=== PATIENT | female | born 1955 | race Caucasian/White ===

== ENCOUNTER 2018-08-27 11:32 | Inpatient (IN) | payer OTHER ==
[~2018-08-27] VITALS: Ht 160 cm; Wt 72.1 kg
--- NOTE | 2018-08-27 04:32 | NUR ---
Lying in bed Hob up Tele ST 100's on Non rebreather mask 15L S/L to right AC intact and patent. S/l to Left Ac intact and patent . side rails up call light within reach. Addendum: 08/28/18 at 0621 by Chang Malcolm RN Time 2030 hrs
[2018-08-27 12:00] VITALS: BP 115/54
--- NOTE | 2018-08-27 12:00 | NUR ---
RN NOTES RECEIVED PATIENT FROM [facility] WITH BREATHING NORMAL, EVEN AND UNLABORED. NO SOB NOTED. NO ACUTE DISTRESS NOTED. TELE MONITOR REVEALS SR, HR=94. IV RAC IS PATENT AND INTACT, NO INFILTRATION NOTED. BOWEL SOUND PRESENT. PULSES PRESENT. KEPT CLEAN, DRY AND COMFORTABLE. ALL NEEDS ATTENDED. SAFETY MEASURE OBSERVED. CALL LIGHT WITH IN REACH. WILL CONT TO MONITOR.
[2018-08-27] MEDS ORDERED: IV NS 0.9% 1,000 ML IV PRN (13:55)
[2018-08-27] MEDS ORDERED: MAG HYDROX/AL HYDROX/SIMETH 30 ML UDC PO PRN (14:00)
[2018-08-27] MEDS ORDERED: Z GUARD REMEDY 2 OZ OINT TP PRN (14:00)
[2018-08-27] MEDS ORDERED: ACETAMINOPHEN 325 MG TABLET PO PRN (14:00)
[2018-08-27] MEDS ORDERED: ALBUTEROL FS 2.5 MG/3 ML VIAL.NEB CONTNEB ONE (14:00)
[2018-08-27] MEDS ORDERED: methylPREDNISolone SOD SUCC 125 MG/2ML VIAL IV ONE (14:00)
[2018-08-27] MEDS ORDERED: MAGNESIUM HYDROXIDE 30 ML UDC PO PRN (14:00)
[2018-08-27] MEDS: ALBUTEROL FS 2.5 MG/3 ML VIAL.NEB NEB SCH ×3 (14:51→23:43)
[2018-08-27] MEDS: IPRATROPIUM NEB FS 0.5 MG/2.5 ML AMPUL.NEB NEB SCH ×3 (14:51→23:43)
[2018-08-27 15:15] LABS: BASOPHILS % (AUTO) 0.4 % (0.0-2.0); EOSINOPHILS % (AUTO) 0.1 % (0.0-6.0); HEMATOCRIT 46 % (33-45); HEMOGLOBIN 15.8 g/dL (11.5-14.8); LYMPHOCYTES # (AUTO) 0.8 /CMM (0.8-4.8); LYMPHOCYTES % (AUTO) 9.9 % (20.0-44.0); MEAN CORPUSCULAR HGB CONC 35 g/dl (31.0-36.0); MEAN CORPUSCULAR VOLUME 97 fL (82-100); MONOCYTES # (AUTO) 0.8 /CMM (0.1-1.30); MONOCYTES % (AUTO) 9.6 % (2.0-12.0); NEUTROPHILS # (AUTO) 6.3 /CMM (1.8-8.9); PLATELET COUNT (AUTO) 132 /CMM (150-450); RED BLOOD CELL COUNT(AUTO) 4.69 MIL/uL (4.0-5.2); WHITE BLOOD COUNT (AUTO) 7.8 K/uL (4.3-11.0)
[2018-08-27 15:47] LABS: ALKALINE PHOSPHATASE 60 U/L (46-116); BILIRUBIN,TOTAL 0.4 mg/dL (0.2-1.0); CARBON DIOXIDE 20 mmol/L (21-32); CHLORIDE 104 mmol/L (98-107); CREATININE 0.6 mg/dL (0.6-1.3); GLUCOSE 111 mg/dL (74-106); POTASSIUM 4.3 mmol/L (3.5-5.1); SODIUM SERUM 136 mmol/L (136-145); UREA NITROGEN, BLOOD 8 mg/dL (7-18)
[2018-08-27 15:48] LABS: ALANINE AMINOTRANSFERASE 26 U/L (12-78); ASPARTATE AMINOTRANSFERASE 42 U/L (15-37); B-TYPE NATRIURETIC PEPTIDE 1117 PG/ML (0-125); MAGNESIUM 1.7 mg/dL (1.8-2.4); TOTAL PROTEIN, SERUM 6.5 g/dL (6.4-8.2)
[2018-08-27 15:58] LABS: PHOSPHORUS 2.8 mg/dL (2.5-4.9)
[2018-08-27 16:00] VITALS: BP 126/61
[2018-08-27 16:12] LABS: BAND % (MANUAL) 2 % (0.0-5.0); LYMPHOCYTES % (MANUAL) 14 % (16-48); MONOCYTES % (MANUAL) 8 % (0-11.0); NEUTROPHILS % (MANUAL) 76 (42-76)
[2018-08-27] MEDS ORDERED: Magnesium 1GM/D5W 100ML PREMIX 100 ML IV SCH (17:15)
[2018-08-27] MEDS: LEVOFLOXACIN 750 MG /D5W 150ML 750 MG in PREMIX 1 EA IV SCH (17:16)
[2018-08-27] MEDS: ENOXAPARIN SODIUM 40 MG/0.4 ML DISP.SYRIN SQ SCH (17:17)
--- NOTE | 2018-08-27 18:00 | NUR ---
RN NOTES RELAYED ABG RESULTS AND ALL LAB RESULTS TO [facility] AND NOTIFIED THAT PATIENT IS NON COMPLIANT WITH OXYGEN AND NOW ON NON-REBREATHER MASK WITH SATURATION 96%. NO NEW ORDER RECEIVED. WILL CONT TO MONITOR.
[2018-08-27 18:31] LABS: ABG BASE EXCESS -3.5 mmol/L; ABG PCO2 32.9 mmHg (35.0-45.0); ABG PH 7.405 (7.350-7.450); AaDO2 57.3 mmHg; COHb 1.8 % (0.5-1.5); MetHb 0.4 % (0.0-1.5); SITE, ABG Right Radial; VENT MODE, BG room air
--- NOTE | 2018-08-27 19:41 | NUR ---
RN NOTES PATIENT ENDORSED TO NEXT SHIFT IN STABLE CONDITION FOR CONTINUITY OF CARE.
[2018-08-27 20:00] VITALS: BP 103/44
[2018-08-27 20:30] VITALS: BP 103/44
[2018-08-27] MEDS: Magnesium 1GM/D5W 100ML PREMIX 100 ML IV SCH ×2 (21:03→21:10)
[2018-08-27] MEDS: methylPREDNISolone SOD SUCC 125 MG/2ML VIAL IV SCH (21:04)
[2018-08-27] MEDS: ZOLPIDEM TARTRATE 5 MG TABLET PO PRN ×3 (22:21→23:29)
[2018-08-28] VITALS (8 sets, daily range): BP systolic 98–121; BP diastolic 43–61
--- NOTE | 2018-08-28 03:00 | NUR ---
Notify Md of pt's non productive cough recieve D/O for robitussin 10 ml q 6 hours prn for cough order.
[2018-08-28] MEDS: GUAIFENESIN/CODEINE 10 ML UDC PO PRN ×3 (03:32→18:40)
[2018-08-28] MEDS: ALBUTEROL FS 2.5 MG/3 ML VIAL.NEB NEB SCH ×6 (03:54→23:01)
[2018-08-28] MEDS: IPRATROPIUM NEB FS 0.5 MG/2.5 ML AMPUL.NEB NEB SCH ×6 (03:54→23:01)
--- NOTE | 2018-08-28 06:18 | NUR ---
End of Shift: lying in bed o2 @ 4L N/c Sat 92% IV N.S. 0.9% infusing @ 75 cc hr to Left Ac tolerating well. Using Bsc to void. Side rails up Call light within reach. Denies of any distress.
[2018-08-28 07:06] LABS: BASOPHILS % (AUTO) 0.3 % (0.0-2.0); HEMATOCRIT 44 % (33-45); HEMOGLOBIN 15.3 g/dL (11.5-14.8); LYMPHOCYTES # (AUTO) 0.8 /CMM (0.8-4.8); LYMPHOCYTES % (AUTO) 10.4 % (20.0-44.0); MEAN CORPUSCULAR HGB CONC 34 g/dl (31.0-36.0); MEAN CORPUSCULAR VOLUME 98 fL (82-100); MONOCYTES # (AUTO) 0.4 /CMM (0.1-1.30); MONOCYTES % (AUTO) 4.8 % (2.0-12.0); NEUTROPHILS # (AUTO) 6.5 /CMM (1.8-8.9); NEUTROPHILS % (AUTO) 84.5 % (43.0-81.0); PLATELET COUNT (AUTO) 128 /CMM (150-450); RED BLOOD CELL COUNT(AUTO) 4.55 MIL/uL (4.0-5.2); WHITE BLOOD COUNT (AUTO) 7.7 K/uL (4.3-11.0)
[2018-08-28 07:25] LABS: CALCIUM, SERUM 7.8 mg/dL (8.5-10.1); CREATININE 0.6 mg/dL (0.6-1.3); MAGNESIUM 2.2 mg/dL (1.8-2.4); POTASSIUM 3.4 mmol/L (3.5-5.1)
[2018-08-28 07:28] LABS: THYROID STIMULATING HORMONE 0.342 uIU/mL (0.358-3.74)
[2018-08-28] MEDS ORDERED: POLY15DR40 EACHEYE (08:13)
[2018-08-28] MEDS ORDERED: POTA10CA43 PO (08:13)
[2018-08-28] MEDS ORDERED: FURO20TA4 PO (08:13)
[2018-08-28] MEDS ORDERED: GABA-534 PO (08:13)
[2018-08-28] MEDS ORDERED: CYAN100T3 PO (08:13)
[2018-08-28] MEDS ORDERED: GUAI5SYR PO (08:13)
[2018-08-28] MEDS ORDERED: CETI10TA14 PO (08:13)
[2018-08-28] MEDS ORDERED: FLUT1BLS IH (08:13)
[2018-08-28] MEDS ORDERED: GUAI600T53 PO (08:13)
[2018-08-28] MEDS ORDERED: TIOT18CA3 IH (08:13)
[2018-08-28] MEDS ORDERED: MONT10TA22 PO (08:13)
[2018-08-28] MEDS ORDERED: IBUP-1957 PO (08:13)
[2018-08-28] MEDS ORDERED: METO50TA16 PO (08:13)
[2018-08-28] MEDS ORDERED: ALBU18HF2 IH (08:14)
--- NOTE | 2018-08-28 08:31 | NUR ---
Dr Bernal paged as the patient sat 89to 91 %. Abg result in and patient placed on 02 at 2lmin/
[2018-08-28] MEDS: methylPREDNISolone SOD SUCC 125 MG/2ML VIAL IV SCH ×3 (08:49→17:05)
[2018-08-28] MEDS: HYDROCODONE/APAP 5/325MG 1 EACH TABLET PO PRN ×2 (08:50→17:06)
--- NOTE | 2018-08-28 08:59 | NUR ---
Dr Omalley the ammonia print operator in and informed of the abg result and okayed to give norco for headache with the sat 91 to 93 at 2l/min
[2018-08-28 09:23] LABS: BAND % (MANUAL) 8 % (0.0-5.0); LYMPHOCYTES % (MANUAL) 9 % (16-48); MONOCYTES % (MANUAL) 7 % (0-11.0); NEUTROPHILS % (MANUAL) 76 (42-76)
[2018-08-28] MEDS: PANTOPRAZOLE 40 MG TABLET.DR PO SCH (10:43)
[2018-08-28] MEDS ORDERED: K PHOS NEUTRAL 250 MG TABLET PO ONE (11:00)
--- NOTE | 2018-08-28 11:09 | NUR ---
K LEVEL 3.[address] BLOUNT PAGED THE PATIENT DID NOT EAT BREAKFAST AND NEEDS ORDERS
--- NOTE | 2018-08-28 11:27 | NUR ---
Dr Bernal with orders and carried out
[2018-08-28] MEDS: IV D5/0.45 NACL 1,000 ML IV PRN (11:31)
--- NOTE | 2018-08-28 16:07 | NUR ---
ambulated to the bathroom and asited back to bed
[2018-08-28] MEDS: LEVOFLOXACIN 750 MG /D5W 150ML 750 MG in PREMIX 1 EA IV SCH (18:16)
--- NOTE | 2018-08-28 18:31 | NUR ---
patient claims she is not relieved with the norco tab dose and requesting for another dose, will infoirmthe attending physician
--- NOTE | 2018-08-28 19:57 | NUR ---
REPORT GIVEN TO THE [employer] SALESPERSON RN TO FOLLOW UP THE CALL FOR DR TuckerASCUAL FOR THE EXEDRIN ORDERS TO CLARIFY. PATIENT IS NOT RELIEVED WITH NORCO
--- NOTE | 2018-08-28 20:10 | NUR ---
RN NOTES, PATIENT IN BED AWAKE, A/O X4 ABLE TO VERBALIZE NEED, BREATHING EVEN AND UNLABORED, WHILE PATIENT IN BREATHING TREATMENT NOTED SAT LEVEL 98%, AFTER BREATHING TREATMENT NOTED 88-89%, PATIENT ASYMPTOMATIC AT THIS TIME, COPD PATIENT IN 2LMP VIA NC, SR IN TELE MONITOR HR IN THE 80S, IVF INFUSING WELL AND PATIENT TOLERATED WELL, BED LOCKED AND IN LOWEST POSITION, CALL LIGHT W/I REACH, WILL CONTINUE TO MONITOR CLOSELY, C/O HEADACHE, NOT RELIVED BY NORCO GIVEN 2HOURS AGO, PATIENT ASKING FOR EITHER MOTRIN OR TRAMADOL, CALLED MD GOLF SHOE SPIKE ASSEMBLER ANDONIAN AND REPLIED WITH NEW ORDER FOR IBUPROFEN 800MG PO Q6HRS PRN, WILL CONTINUE TO MONITOR CLOSELY.
[2018-08-28] MEDS: IBUPROFEN 400 MG TABLET PO PRN (20:25)
[2018-08-28] MEDS: ENOXAPARIN SODIUM 40 MG/0.4 ML DISP.SYRIN SQ SCH (20:49)
[2018-08-28] MEDS: ONDANSETRON HCL/PF 4 MG/2 ML VIAL IVP PRN (21:33)
[2018-08-29] VITALS: BP 133/73
[2018-08-29] MEDS: GUAIFENESIN/CODEINE 10 ML UDC PO PRN ×2 (02:31→20:33)
[2018-08-29] MEDS: HYDROCODONE/APAP 5/325MG 1 EACH TABLET PO PRN ×4 (02:31→20:33)
[2018-08-29] MEDS: ALBUTEROL FS 2.5 MG/3 ML VIAL.NEB NEB SCH ×6 (02:47→23:12)
[2018-08-29] MEDS: IPRATROPIUM NEB FS 0.5 MG/2.5 ML AMPUL.NEB NEB SCH ×6 (02:48→23:12)
[2018-08-29 04:00] VITALS: BP 124/71
[2018-08-29] MEDS: IV D5/0.45 NACL 1,000 ML IV PRN ×2 (05:41→23:24)
--- NOTE | 2018-08-29 06:45 | NUR ---
RN NOTES, PATIENT IN BED SLEEPING AT THIS TIME, BREATHING EVEN AND UNLABORED, IN 2LMP VIA NC, O2 SAT LEVEL FLUCTUATING 88-93% ALL NIGHT, SR IN TELE MONITOR HR IN THE 80S, IVF INFUSING WELL AND PATIENT TOLERATED WELL, BED LOCKED AND IN LOWEST POSITION, CALL LIGHT W/I REACH, PATIENT ASKING FOR EITHER MOTRIN OR TRAMADOL, NO SIGNIFICANT CHANGE IN CONDITION DURING THE NIGHT, WILL ENDORSE CONTINUITY OF CARE TO ONCOMING NURSE.
[2018-08-29] MEDS: PANTOPRAZOLE 40 MG TABLET.DR PO SCH (07:44)
--- NOTE | 2018-08-29 07:45 | NUR ---
RN NOTE PATIENT IN BED AWAKE, A/O X4 ABLE TO VERBALIZE NEED, BREATHING EVEN AND UNLABORED WITH NO DISTRESS NOTED SATURATING WELL ON 2L VIA NC. ON ANALYTICAL CONSULTANT HR OF 96. IV SITE INTACT AND PATENT. SKIN WARM TO TOUCH AND INTACT. BED LOW AND LOCKED POSITION. ALL SAFETY MEASURES DONE. WILL CONTINUE TO MONITOR.
[2018-08-29 08:00] VITALS: BP 161/65
[2018-08-29] MEDS: methylPREDNISolone SOD SUCC 125 MG/2ML VIAL IV SCH ×3 (08:10→16:27)
[2018-08-29 12:00] VITALS: BP 159/68
[2018-08-29 16:00] VITALS: BP 130/74
[2018-08-29] MEDS: LEVOFLOXACIN 750 MG /D5W 150ML 750 MG in PREMIX 1 EA IV SCH (16:28)
--- NOTE | 2018-08-29 19:03 | NUR ---
RN NOTE PATIENT REMAINED STABLE THROUGHOUT SHIFT. NO DISTRESS NOTED. WILL ENDORSE TO NEXT SHIFT TO CONTINUE CONTINUITY OF CARE.
--- NOTE | 2018-08-29 19:30 | NUR ---
RN NOTES, PATIENT IN BED AWAKE A/O X4 ABLE TO VERBALIZE NEEDS AND CONCERNS, NO SOB/ACUTE DISTRESS NOTED, BREATHING EVEN AND UNLABORED, NO S/S OF PAIN OR DISCOMFORT AT 2LMP VIA NC, O2 SAT LEVEL 94% AT THIS TIME, SR IN TELE MONITOR HR IN THE 80S, IVF INFUSING WELL AND PATIENT TOLERATED WELL, NO S/S OF INFILTRATION NOTED, BED LOCKED AND IN LOWEST POSITION, CALL LIGHT W/I REACH, WILL CONTINUE TO MONITOR CLOSELY.
[2018-08-29 20:00] VITALS: BP 130/65
[2018-08-29] MEDS: ENOXAPARIN SODIUM 40 MG/0.4 ML DISP.SYRIN SQ SCH (20:34)
[2018-08-30] VITALS: BP 125/62
[2018-08-30] MEDS: HYDROCODONE/APAP 5/325MG 1 EACH TABLET PO PRN ×3 (00:52→23:16)
[2018-08-30] MEDS: IPRATROPIUM NEB FS 0.5 MG/2.5 ML AMPUL.NEB NEB SCH ×5 (03:13→19:51)
[2018-08-30] MEDS: ALBUTEROL FS 2.5 MG/3 ML VIAL.NEB NEB SCH ×5 (03:13→19:51)
[2018-08-30] MEDS: ONDANSETRON HCL/PF 4 MG/2 ML VIAL IVP PRN ×2 (03:25→17:36)
[2018-08-30] MEDS: GUAIFENESIN/CODEINE 10 ML UDC PO PRN ×3 (03:30→23:16)
[2018-08-30] MEDS: IBUPROFEN 400 MG TABLET PO PRN (03:32)
[2018-08-30 04:00] VITALS: BP 128/76
--- NOTE | 2018-08-30 06:48 | NUR ---
RN NOTES, PATIENT IN BED SLEEPING AT THIS TIME, BREATHING EVEN AND UNLABORED, IN 5LMP VIA NC, O2 SAT LEVEL FLUCTUATING 88-94% ALL NIGHT, SR IN TELE MONITOR HR IN THE 90S, IVF INFUSING WELL AND PATIENT TOLERATED WELL, BED LOCKED AND IN LOWEST POSITION, CALL LIGHT W/I REACH, NO SIGNIFICANT CHANGE IN CONDITION DURING THE NIGHT, WILL ENDORSE CONTINUITY OF CARE TO ONCOMING NURSE.
--- NOTE | 2018-08-30 07:58 | NUR ---
CENSUS ENUMERATOR OPENING NOTES, RECEIVED PATIENT IN BED SLEEPING. NO SOB OR ACUTE DISTRESS NOTED. REPORTED TO DESATURATE ON EXERTION. ON 2L 02 VIA NC, O2 SAT LEVEL FLUCTUATING 88-94% ALL NIGHT, SR IN TELE MONITOR HR IN THE 90S, R AC IVF INFUSING WELL AND PATIENT.SAFETY MEASURES IN PLACE, BED LOCKED AND IN LOWEST POSITION, CALL LIGHT W/I REACH, NO SIGNIFICANT OVERNIGHT CHANGE IN CONDITION REPORTED, WILL CONTINUE TO MONITOR.
[2018-08-30 08:00] VITALS: BP 133/64
[2018-08-30] MEDS: methylPREDNISolone SOD SUCC 125 MG/2ML VIAL IV SCH ×3 (08:20→17:36)
[2018-08-30] MEDS: PANTOPRAZOLE 40 MG TABLET.DR PO SCH (08:20)
[2018-08-30] MEDS: IV D5/0.45 NACL 1,000 ML IV PRN (12:40)
[2018-08-30 16:00] VITALS: BP 130/68
[2018-08-30] MEDS: LEVOFLOXACIN (750 MG) 750 MG TABLET PO SCH (17:46)
--- NOTE | 2018-08-30 19:42 | NUR ---
INTERNATIONAL PROJECT MANAGER CLOSING NOTES, PATIENT IN BED AWAKE AND RESTING COMFORTABLY. NO SOB OR ACUTE DISTRESS NOTED. ON 3L 02 VIA NC, O2 SAT LEVEL FLUCTUATING 88-94% ALL NIGHT, MD BEDSIDE TODAY. NO SIGNIFICANT CHANGES DURING SHIFT. R AC IVF INFUSING WELL AND PATENT.SAFETY MEASURES IN PLACE, BED LOCKED AND IN LOWEST POSITION, CALL LIGHT W/I REACH, CARE ENDORSED TO SLIP BRIDGE OPERATOR RN.
--- NOTE | 2018-08-30 19:49 | NUR ---
RN MS OPENING NOTE S RECEIVED PT SITTING UP IN BED, AWAKE ALERT ORIENTEDX4 BREATHING EVEN AND UNLABORED ON 3L O2 NC. OCCASIONAL COUGHING, NO SOB. COMPLAINS OF PAIN IN THE NECK AND HEAD, CONGESTION-LIKE, WILL ADMINISTER PAIN MEDICINE PRESCRIBED. IV ACCESS ON THE R AC D51/2 @75ML/HR. BED IN LOWEST LOCKED POSITION, CALL LIGHT WITHIN REACH AT ALL TIMES, WILL CONTINUE TO MONITOR FREQUENTLY.
[2018-08-30 20:00] VITALS: BP 130/69
[2018-08-30] MEDS: ENOXAPARIN SODIUM 40 MG/0.4 ML DISP.SYRIN SQ SCH (20:39)
[2018-08-31] MEDS: ALBUTEROL FS 2.5 MG/3 ML VIAL.NEB NEB SCH ×6 (00:03→19:49)
[2018-08-31] MEDS: IPRATROPIUM NEB FS 0.5 MG/2.5 ML AMPUL.NEB NEB SCH ×6 (00:03→19:49)
[2018-08-31 04:00] VITALS: BP 127/64
[2018-08-31 04:34] VITALS: BP 127/64
[2018-08-31] MEDS: HYDROCODONE/APAP 5/325MG 1 EACH TABLET PO PRN ×2 (05:34→19:25)
[2018-08-31] MEDS: IV D5/0.45 NACL 1,000 ML IV PRN (05:39)
--- NOTE | 2018-08-31 06:45 | NUR ---
RN MS CLOSING NOTES PT REMAINS IN BED, SLEEPING, EASILY AROUSED TO NAME CALL. BREATHING EVEN AND UNLABORED ON 3L O2 NC. OCCASIONAL COUGHING, NO SOB. IN NO APPARENT PAIN OR DISCOMFORT AT THIS TIME. IV ACCESS ON THE R AC D51/2 @75ML/HR. BED IN LOWEST LOCKED POSITION, CALL LIGHT WITHIN REACH AT ALL TIMES, WILL ENDORSE TO DAY NURSE FOR NATACHA.
[2018-08-31 06:49] LABS: BASOPHILS % (AUTO) 0.2 % (0.0-2.0); EOSINOPHILS % (AUTO) 0.1 % (0.0-6.0); HEMATOCRIT 43 % (33-45); HEMOGLOBIN 14.8 g/dL (11.5-14.8); LYMPHOCYTES # (AUTO) 1.6 /CMM (0.8-4.8); LYMPHOCYTES % (AUTO) 16.6 % (20.0-44.0); MEAN CORPUSCULAR HGB CONC 34 g/dl (31.0-36.0); MEAN CORPUSCULAR VOLUME 98 fL (82-100); MONOCYTES # (AUTO) 0.9 /CMM (0.1-1.30); MONOCYTES % (AUTO) 9.3 % (2.0-12.0); NEUTROPHILS # (AUTO) 7.1 /CMM (1.8-8.9); NEUTROPHILS % (AUTO) 73.8 % (43.0-81.0); PLATELET COUNT (AUTO) 169 /CMM (150-450); RED BLOOD CELL COUNT(AUTO) 4.41 MIL/uL (4.0-5.2); WHITE BLOOD COUNT (AUTO) 9.7 K/uL (4.3-11.0)
[2018-08-31 07:14] LABS: CALCIUM, SERUM 8.2 mg/dL (8.5-10.1); CREATININE 0.6 mg/dL (0.6-1.3); MAGNESIUM 2.2 mg/dL (1.8-2.4); PHOSPHORUS 2.9 mg/dL (2.5-4.9); POTASSIUM 3.6 mmol/L (3.5-5.1)
[2018-08-31] MEDS: PANTOPRAZOLE 40 MG TABLET.DR PO SCH (07:42)
[2018-08-31 08:00] VITALS: BP 132/64
[2018-08-31 08:46] LABS: BAND % (MANUAL) 4 % (0.0-5.0); LYMPHOCYTES % (MANUAL) 18 % (16-48); MONOCYTES % (MANUAL) 5 % (0-11.0); NEUTROPHILS % (MANUAL) 73 (42-76)
[2018-08-31] MEDS: methylPREDNISolone SOD SUCC 125 MG/2ML VIAL IV SCH ×3 (08:48→17:00)
[2018-08-31 09:00] VITALS: BP 132/64
[2018-08-31 09:26] LABS: ABG BASE EXCESS 1.8 mmol/L; ABG OXYGEN SATURATION 84.6 % (92.0-98.5); ABG PCO2 46.4 mmHg (35.0-45.0); ABG PH 7.389 (7.350-7.450); ABG PO2 46.1 mmHg (75.0-100.0); AaDO2 48.1 mmHg; MetHb 0.3 % (0.0-1.5); O2Hb 83.5 % (94.0-97.0); SITE, ABG Right Radial; VENT MODE, BG RA
[2018-08-31] MEDS ORDERED: PRED20TA PO (10:32)
[2018-08-31] MEDS ORDERED: LEVO750T21 PO (10:32)
--- NOTE | 2018-08-31 11:18 | NUR ---
PATIENT DESATURATED TO 86% ON ROOM AIR AT RESTPLACED ON O2 2L N/C.
[2018-08-31] MEDS: GUAIFENESIN/CODEINE 10 ML UDC PO PRN (15:45)
[2018-08-31 16:00] VITALS: BP 137/61
[2018-08-31] MEDS: LEVOFLOXACIN (750 MG) 750 MG TABLET PO SCH (17:37)
--- NOTE | 2018-08-31 19:05 | NUR ---
MS RN NOTES RECEIVED PT IN BED AWAKE AND ABLE TO MAKE NEEDS KNOWN. PT A/O X4. RESPIRATIONS EVEN AND UNLABORED WITH NO S/S OF ACUTE DISTRESS OR SOB NOTED. PT ON 3L O2 VIA NC TOLERATING WELL. PT NOTED WITH NO IV ACCESS. SAFETY MEASURES IN PLACE WITH BED IN LOWEST LOCKED POSITION WITH SIDE RAILS UP X2. CALL LIGHT WITHIN REACH. WILL CONTINUE TO MONITOR.
--- NOTE | 2018-08-31 20:30 | NUR ---
MS RN NOTES PT AWAITING D/C. PT O2 WAS RECEIVED AND [facility] CALLED.
[2018-08-31 20:58] VITALS: BP 145/63
--- NOTE | 2018-08-31 21:10 | NUR ---
MS FURNITURE SALES ASSOCIATE PT LEFT UNIT AT 2057 AND DEPARTED WITH [facility] AT 2104. PT A/O X4. PT DISCHARGED TO HOME VIA [facility] IN STABLE CONDITION WITH O2. REVIEWED DISCHARGE INSTRUCTIONS WITH PT AND SHE VERBALIZED UNDERSTANDING AND ALL QUESTIONS ANSWERED TO HER SATISFACTION. ALL BELONGING WITH PT AND SHE DENIED ANY MISSING ITEMS. VSS, DENIES PAIN, AFEBRILE, NO C/O SOB, AND NO APPARENT DISTRESS SEEN. NO FALL/INJURY DURING HOSPITAL STAY. SALINE LOCK REMOVED WITH NO REDNESS NOTED. DISCHARGE PAPERS SENT WITH PT.
== END 2018-08-31 20:00 | disposition home or self-care (01) | DRG 720 ==
LOC: TELE1 11:32 → MEDSG1 08-30 11:10
PROVIDERS: ADMIT Hospitalist; ATTEND Student in an Organized Health Care Education/Training Program
DX: A41.9 Sepsis, unspecified organism (principal); J96.01 Acute respiratory failure with hypoxia; J44.1 Chronic obstructive pulmonary disease with (acute) exacerbation; G89.4 Chronic pain syndrome; F17.210 Nicotine dependence, cigarettes, uncomplicated; E83.42 Hypomagnesemia; E44.1 Mild protein-calorie malnutrition; E87.1 Hypo-osmolality and hyponatremia; E87.6 Hypokalemia; I50.32 Chronic diastolic (congestive) heart failure; E88.09 Other disorders of plasma-protein metabolism, not elsewhere classified; Z68.28 Body mass index [BMI] 28.0-28.9, adult; J06.9 Acute upper respiratory infection, unspecified
CPT/HCPCS: 36415; 36600; 70220-TC; 71045-TC; 80048-TC; 80053-TC; 80061-TC; 82803-TC; 83735-TC; 83880; 84100-TC; 84443-TC; 84484-TC; 85025-TC; 93307-TC; 94760-TC; 94799-TC; A4216; G0378; J1650; J1956; J2405; J2930; J3475; J3490; J7030